=== PATIENT | male | born 1965 | race Caucasian/White ===

== ENCOUNTER 2017-12-09 13:25 | Emergency (ER) | payer BC, SELFPAY ==
--- NOTE | 2017-12-09 13:31 | XR_ITS ---
XR foot RT min 3V HISTORY: Pain at the fifth metatarsal ITS.REASON: PAIN ORDERING PHYSICIAN: Terrell Givens PATIENT AGE: 52 years COMPARISON: None FINDINGS: No fracture or dislocation. No lytic or blastic change. There is normal mineralization.. The joint spaces are well-preserved. No significant degenerative/arthritic changes. No erosive changes evident. IMPRESSION: Negative, no acute finding
[2017-12-09 13:46] VITALS: BP 190/87; PULSE 75; RESP 20; TEMP 36.6; O2SAT 99; BMI 27.1
--- NOTE | 2017-12-09 14:59 | HMH.EDUTC ---
[facility] [place] Disposition Clinical Impression: Right foot sprain Qualifiers: Encounter type: initial encounter Qualified Code(s): S93.601A - Unspecified sprain of right foot, initial encounter Disposition: Home, Self-Care Condition on Discharge: Good Instructions: How To Perform RICE (Rest, Ice, Compress, Elevate), DI for Foot Sprain Additional Instructions: * weight bearing as tolerated. Wear a shoe for support. If you change your mind about a walking boot, return and let us know. * Rest * ice 15-20 mins 3-4 times a day * Elevate as discussed as much as possible to help reduce swelling and therefore, pain * Ibuprofen every 6 hours as needed for pain and inflammation unless you want to take the meloxicam. DO NOT take both as they are similar medications. If you need something more, you can take tylenol every 4 hours as needed as long as your primary care provider has told you it is ok to take both. Referrals: Brad Gauthier MD [Primary Care Provider] - (Keep tomorrow morning's follow up appt. Be sure to let him know you were here and xrays were done. He should have access to this. ) Time of Disposition: 15:10 Medical Decision Making Vital Signs: 12/09/17 13:46 Temperature 98 F Temperature Source Temporal Artery Scan Pulse Rate [Right Brachial] 75 Respiratory Rate 20 Blood Pressure [Right Arm] 190/87 Blood Pressure Mean [Right Arm] 121 Blood Pressure Source [Right Arm] Automatic Cuff Blood Pressure Position [Right Arm] Sitting 02 Sat by Pulse Oximetry 99 Oxygen Delivery Method Room Air - Radiology Data #1 Image(s): Foot/Toes Image Reviewed: Yes I have reviewed radiologist's interpretation Preliminary Findings: Normal/NAD - Harish Inquiry Pt receiving controlled substance: No [facility] [place] HPI - General Stated complaint: AO [id number] RIGHT FOOT PAIN Time Seen by Provider: 12/09/17 14:59 Mode of Arrival: Ambulatory Source of Information: Patient Limitations: No Limitations Description of Symptoms (Recalled from Triage Doc. by RN): PT TWISTED RIGHT FOOT ON THURSDAY. PT NOW C/O PAIN IN THE ANKLE HEENT Symptoms (Recalled from RN notes): No Resp Symptoms (Recalled from RN notes): No Skin Symptoms (Recalled from RN notes): No MS Symptoms (Recalled from RN notes): Yes (C/O RT ANKLE PAIN) Functional Status (Recalled from RN notes): N/A - History of Present Illness Provider Complaint: c/o pain right foot in area between 5th digit and ankle. No ankle pain. No limited ROM. Reports that on Thursday he stood from his recliner barefoot and pivoted to walk into kitchen. When he did, he felt a strange sensation, not pain. Remember thinking I am sure I will feel that later . No pain that day. Wokeup Thursday, no pain until foot hit floor and tried to walk. Pain worse with walking. Meloxicam helps. Already scheduled appt with PCP tomorrow morning but wants xrays to rule out fracture. - Related Data Allergies Allergy/AdvReac Type Severity Reaction Status Date / Time Sulfa (Sulfonamide Allergy Unknown Verified 12/09/17 13:51 Antibiotics) [SULFA (SULFONAMIDE ANTIBIOTICS)] - Worker's Comp Is this a Worker's Comp case?: No [facility] History I have reviewed the patient's past medical history: Yes Medical History: Reports:: Diabetes Mellitus Type 2 Denies:: Cancer, Diabetes Mellitus Type 1, Hypertension, MRSA Other Surgeries: Yes: Other (tonsillectomy, knee, anterior bowel resection) Amputation: No Fractures: No - *Social History Smoking Status: Current every day smoker Tobacco Type: cigarettes Alcohol Intake: current Alcohol Intake Frequency:: a few times a month - Psychiatric History Expresses thoughts of harming self/others: None Suicide Plan Description: No Plan ROS Obtained: Yes Systems reviewed as appropriate & no additional complaints - Constitutional Constitutional: Denies body ache, Denies chills, Denies fever(s) - Musculoskeletal Musculoskeletal: Reports as per HPI, Denies abnormal gait, Denies selma
[2017-12-09 15:11] VITALS: BP 144/78; PULSE 78; RESP 20; TEMP 36.6; O2SAT 96
== END 2017-12-09 15:12 | disposition home or self-care (01) ==
PROVIDERS: Emergency Provider Nurse Practitioner Family; Family Provider Family Medicine; PCP Family Medicine
DX: S93.601A Unspecified sprain of right foot, initial encounter (principal); X50.1XXA Overexertion from prolonged static or awkward postures, initial encounter; Y92.019 Unspecified place in single-family (private) house as the place of occurrence of the external cause; Z88.2 Allergy status to sulfonamides; F17.210 Nicotine dependence, cigarettes, uncomplicated
CPT/HCPCS: 73630; 99202

== ENCOUNTER → 2020-06-27 11:52 | Outpatient (CLI) | payer BC, SELFPAY ==
--- NOTE | 2020-06-27 11:59 | XR_ITS ---
PROCEDURE: XR KNEE LT 2V CLINICAL INDICATION: PAIN IN L KNEE, INJURY UNSPECIFIED COMPARISON: CR KNEE3L KNEE-3 VIEWS-LT from 08/23/2015 FINDINGS: No fracture or dislocation. No lytic or blastic change. There is normal mineralization. The joint spaces are well-preserved. No significant degenerative/arthritic changes. No erosive changes evident. Other findings:None. IMPRESSION: No acute findings. Dictated by: Clayton Forrest MD 06/27/2020 14:02 Clayton Forrest MD in [place] 06/27/2020 14:02
== END ==
PROVIDERS: PCP Family Medicine; Visit Provider Family Medicine
DX: M25.562 Pain in left knee (principal); T14.90XA Injury, unspecified, initial encounter
CPT/HCPCS: 73560

== ENCOUNTER → 2020-08-06 15:52 | Outpatient (CLI) | payer BC, SELFPAY ==
--- NOTE | 2020-08-06 16:00 | XR_ITS ---
PROCEDURE: XR ANKLE RT MIN 3V CLINICAL INDICATION: ACUTE RT ANKLE PAIN, RT ANKLE SWELLING COMPARISON: No exams were available for comparison FINDINGS: No fracture or dislocation. No lytic or blastic change. There is normal mineralization. The joint spaces are well-preserved. No significant degenerative/arthritic changes. No erosive changes evident. Other findings:None. IMPRESSION: No acute findings. Dictated by: Clayton Forrest MD 08/06/2020 16:25 Clayton Forrest MD in [place] 08/06/2020 16:25
[2020-08-06 16:52] LABS: Basophils # 0.1 K/mm3 (0-0.2); Basophils % 0.5 % (0.1-2.0); Eosinophils # 0.2 K/mm3 (0.0-0.4); Hematocrit 44.8 % (42.0-52.0); Lymphocytes # 1.2 K/mm3 (0.7-4.5); Lymphocytes % 13.7 % (10-50); Mean Corpuscular HGB Conc 33.4 g/dL (31.8-35.4); Mean Corpuscular Hemoglobin 32.2 pg (27.0-31.2); Mean Corpuscular Volume 96.6 fl (80-94); Mean Platelet Volume 7.5 fl (7.4-10.4); Monocytes # 0.7 K/mm3 (0.1-1.0); Monocytes % 7.5 % (1.7-9.3); Neutrophils # 6.7 K/mm3 (1.8-7.8); Neutrophils % 76.3 % (37.0-80.0); Platelet Count 343 K/mm3 (142-424); Red Blood Count 4.64 M/mm3 (4.60-6.20); Red Cell Distribution Width 13.2 % (11.5-17.5); White Blood Count 8.7 K/mm3 (4.8-10.8)
[2020-08-06 17:27] LABS: Uric Acid 7.2 mg/dl (3.5-8.5)
== END ==
PROVIDERS: PCP Family Medicine; Visit Provider Nurse Practitioner Family
DX: M25.571 Pain in right ankle and joints of right foot (principal); M25.471 Effusion, right ankle
CPT/HCPCS: 36415; 73610; 84550; 85025

== ENCOUNTER → 2021-05-22 15:30 | Outpatient (CLI) | payer BC, SELFPAY | PROVIDERS: Visit Provider Internal Medicine Gastroenterology | DX: Z01.812 Encounter for preprocedural laboratory examination (principal); Z11.52 Encounter for screening for COVID-19; Z12.11 Encounter for screening for malignant neoplasm of colon | CPT/HCPCS: U0003 ==

== ENCOUNTER 2021-05-24 11:44 | Day surgery (SDC) | payer BC, SELFPAY ==
[2021-05-21 11:28] VITALS: BMI 29.1
[2021-05-24 12:41] VITALS: BP 174/100; PULSE 65; RESP 18; TEMP 36.4; O2SAT 99
[2021-05-24 13:05] LABS: POC Glucose,Bedside 138 (70-110)
[2021-05-24 13:11] VITALS: O2SAT 99
--- NOTE | 2021-05-24 13:46 | HMH.PROC ---
[facility] Procedure Note Procedure Note:: Colonoscopy Procedure Report: Colonoscopy with cold snare polypectomy Endoscopist: Quincy Arreaga II, MD Referring physician: Brad Gauthier MD/Fabricio Zhou MD Date of Procedure: May 24, 2021 Equipment: Olympus 190 variable stiffness pediatric colonoscope Sedation: MAC sedation Indication: Mr. Gutierres is a 55-year-old gentleman who had a prior colonoscopy in January 2017 and had a large rectosigmoid polyp. The histology showed focal intramucosal adenocarcinoma arising within a tubulovillous adenoma. He also had a second polyp that was tubular adenoma with high-grade dysplasia (i.e. advanced adenoma). He had 2 additional diminutive colon polyps at that time. His last colonoscopy in May 2018 revealed 5 additional polyps (primarily serrated adenomas x5) which were removed. The patient reports no abdominal pain, weight loss, change in his bowel habits or rectal bleeding. He reports no family history of colon cancer. He does state that the Janumet resulted in loose bowel movements. Procedure: Prior to the procedure, a history and physical exam was performed, and patient's medications and allergies were reviewed. The risks, benefits and alternatives of the sedation and procedure were discussed with the patient. All questions were answered and informed consent was obtained. The patient was brought to the procedure room. Patient identification and proposed procedure were verified by the physician and the nurse. The patient was placed in a left lateral decubitus position and the scope was passed under direct vision. Throughout the procedure, the patient's blood pressure, pulse, and oxygen saturations were monitored continuously. The colonoscopy was accomplished without difficulty. The patient tolerated the procedure well. Findings: On digital rectal examination there was normal rectal tone. There were no external hemorrhoids. The prostate was 2+, smooth, soft, symmetric without nodules. The colonoscope was introduced through the anal canal to the rectum and advanced to the cecum. The ileocecal valve and appendiceal orifice were identified. The scope was advanced a short distance into the ileum which appeared grossly normal. The scope was then withdrawn into the colon. There were 3 diminutive polyps (ascending x1 (4 mm) and rectosigmoid x2 (3 and 4 mm)) which were all removed via cold snare polypectomy. The remaining cecum, ascending and transverse colon and mucosa were grossly normal. There were scattered diverticuli throughout the remaining descending colon. There was evidence of the prior end-to-side anastomosis which was healthy and well-healed. The rectum itself was normal. Upon retroflexion within the rectum there were grade 1-2 internal hemorrhoids. The preparation was excellent throughout with [place] Preparation Score of 9. The cecal time was 11 minutes. Impression: 1. Diminutive colonic polyps x3 2. Mild left-sided diverticulosis 3. Prior LAR anastomosis (normal) 4. Grade 1-2 internal hemorrhoids Plan: I would recommend surveillance colonoscopy again in 3 years. The patient has had adenocarcinoma as well as very advanced adenomatous polyps at a young age. I would like to see if his prior pathology specimen can be tested further for MSI (microsatellite instability) to rule out Dillon syndrome. This may have implications on future surveillance protocol as well as pertinence with his siblings and children.
[2021-05-24 13:50] VITALS: BP 105/77; PULSE 72; RESP 16; TEMP 36.6; O2SAT 94
[2021-05-24 14:00] VITALS: BP 155/90; PULSE 55; RESP 16; TEMP 36.6; O2SAT 94
--- NOTE | 2021-05-24 14:02 | HMH.ANESCL ---
[facility] Anesthesia Checklist - Structural Data Admitted From: Inpatient Planned Operative Procedure/s: egd Consent for Planned Operative Procedure(s) Verified: Yes - Additional verifications Anesthesia Reactions: No - Airway Assessment C-Spine Mobility Assessed: Yes TMJ Mobility Assessed: Yes Dentition: Poor Dentition - Neurological Assessment Level of Consciousness: Awake, Alert, Appropriate - Anesthesia Plan Anesthesia Risk discussed: Yes Anesthesia Plan: Verified ASA Class: III Anesthesia Type: MAC [facility] History I have reviewed the patient's past medical history: Yes Medical History: Reports:: Diabetes Mellitus Type 2, Hyperlipidemia Denies:: Cancer, Diabetes Mellitus Type 1, Hypertension, Internal Pacemaker, Lung Disease, MRSA, Seizures *Have you ever received a pneumonia vaccine?: No *Have you received a flu vaccine this season?: Yes Anesthesia experience/problems:: none Laterality Cases: Bilateral: Tonsillectomy Other Surgeries: Yes: Other (tonsillectomy, knee, anterior bowel resection). No: Pacemaker Amputation: No Fractures: No - *Social History Last grade of school completed: Advanced degree Smoking Status: Current some day smoker Tobacco Type: cigars #Yrs smoked (if former smoker): 5 Smoking End Date: 2017 Alcohol Intake: current Alcohol Intake Frequency:: a few times a week Substance Use Type: denies use *Occupational Status:: employed Housing: house Household Members: none *Travel in the last 8 weeks: None Family Hx:: Diabetes
[2021-05-24 14:10] VITALS: BP 158/87; PULSE 51; RESP 18; TEMP 36.6; O2SAT 95
[2021-05-24 14:20] VITALS: BP 159/90; PULSE 55; RESP 18; TEMP 36.6; O2SAT 96
== END 2021-05-24 14:20 | disposition home or self-care (01) ==
LOC: OUTP 11:47
PROVIDERS: PCP Family Medicine; Visit Provider Internal Medicine Gastroenterology
PROC: 0DJD8ZZ Inspection of Lower Intestinal Tract, Via Natural or Artificial Opening Endoscopic (ICD-10-PCS; CPT 45378; principal; 2021-05-24 13:00)
DX: Z12.11 Encounter for screening for malignant neoplasm of colon (principal); Z85.038 Personal history of other malignant neoplasm of large intestine; K63.5 Polyp of colon; K57.30 Diverticulosis of large intestine without perforation or abscess without bleeding; K64.0 First degree hemorrhoids; Z90.49 Acquired absence of other specified parts of digestive tract; E11.9 Type 2 diabetes mellitus without complications; E78.5 Hyperlipidemia, unspecified; Z83.3 Family history of diabetes mellitus; Z72.0 Tobacco use; Z88.2 Allergy status to sulfonamides; Z79.899 Other long term (current) drug therapy
CPT/HCPCS: 45385; 82962

== ENCOUNTER → 2021-11-21 08:51 | Outpatient (CLI) | payer BC, SELFPAY | PROVIDERS: Visit Provider Nurse Practitioner | DX: U07.1 COVID-19 (principal) | CPT/HCPCS: C9803; U0003; U0005 ==

== ENCOUNTER → 2022-06-18 11:17 | Outpatient (CLI) | payer BC, SELFPAY ==
--- NOTE | 2022-06-18 11:23 | XR_ITS ---
FINAL REPORT CLINICAL HISTORY: SWELLING IN SUPRA PUBIS AREA FINDINGS: Two views of the chest were obtained. The heart size and pulmonary vascularity are within normal limits. The mediastinum is normal. No acute pulmonary abnormality is identified. There is no pneumothorax. The bony thorax is intact. IMPRESSION: No active cardiopulmonary disease. Reviewed, Interpreted and Dictated by Dionicio Gerardo III, MD Transcribed by Ilana Chavez Authenticated and [facility]
== END ==
PROVIDERS: PCP Family Medicine; Visit Provider Family Medicine
DX: R22.2 Localized swelling, mass and lump, trunk (principal)
CPT/HCPCS: 71046

== ENCOUNTER → 2022-07-16 09:56 | Outpatient (CLI) | payer BC, SELFPAY ==
--- NOTE | 2022-07-16 10:31 | MR_ITS ---
FINAL REPORT CLINICAL HISTORY: HERNIATION OF LEFT APEX LUNG X 2-3 WEEKS PT STATED AREA IS SQUISHY , NO HARD NODULES OR PAIN MARKER PLACED ON AREA OF INTREST FINDINGS: MRI CHEST W/O CONTRAST Multi planar MR imaging was obtained of the chest without contrast. There is no mediastinal or hilar mass. No pulmonary mass is identified. There is no chest wall mass or fluid collection. There is no chest wall hernia. IMPRESSION: No mass, fluid collection, or hernia identified. Reviewed, Interpreted and Dictated by Dionicio Gerardo III, MD Transcribed by Antione Valera Authenticated and [facility]
== END ==
PROVIDERS: PCP Family Medicine; Visit Provider Family Medicine
DX: J98.4 Other disorders of lung (principal)
CPT/HCPCS: 71550

== ENCOUNTER 2022-08-30 11:39 | Emergency (ER) | payer BC, SELFPAY ==
[2022-08-30 11:42] VITALS: BP 160/100; PULSE 95; RESP 18; TEMP 36.7; O2SAT 98; BMI 28.3
--- NOTE | 2022-08-30 12:04 | XR_ITS ---
PROCEDURE INFORMATION: Exam: XR Right Hand Exam date and time: 08/30/2022 12:14 PM Age: 56 years old Clinical indication: Injury or trauma; Other: Smashed right index finger; Blunt trauma (contusions or hematomas); Injury date: 08/30/2022 TECHNIQUE: Imaging protocol: Radiologic exam of the Right hand. Views: 3 or more views. COMPARISON: No relevant prior studies available. FINDINGS: Bones/joints: Normal. Soft tissues: Normal. IMPRESSION: No acute findings.
[2022-08-30 12:10] VITALS: BP 160/100; PULSE 95; RESP 18; TEMP 36.7; O2SAT 98; BMI 28.3
--- NOTE | 2022-08-30 13:05 | EXP.UTC ---
Discharge Plan Disposition Patient Disposition: Home, Self-Care Condition: Good Prescriptions Prescriptions: New amoxicillin-pot clavulanate 875-125 mg Tablet 1 tab PO Q12H 7 Days Qty: 14 0RF No Action atorvastatin 10 mg tablet 10 mg PO erythromycin 5 mg/gram (0.5 %) ointment 0.5 inch OPHTHALMIC BID 7 Days Qty: 1 0RF sitagliptin-metformin 0 tablet, ER multiphase 24 hr 2 tab PO DAILY Referrals Follow up/Referrals: Carl Chacon MD [Primary Care Provider] - See instructions Activity Restrictions/Add. Instructions Additional Instructions/Restrictions: Suture instructions: ?You have required stitches or [place] today. Please read the following instructions so you know how to care for them: ?1. Keep wound area dry for the first 24 hours. 2?? May clean gently with mild soap and water, after 48 hours to prevent crusting over suture knots. 3. You may shower if your provider gives permission but do not take a bath until the skin is healed.. 4. Never leave a wet dressing or Band-Aid on your stitches as this allows bacteria to reach the area and may cause infection. Band-aids can cause the wound to sweat and not recommended to wear for long periods of time Watch for signs of infection: ? Increasing redness, tenderness or warmth around the suture site ? Unusual swelling around the site ? Appearance of pus around each suture or any red streaks ? Fever If you develop any of the above signs or symptoms of infection, Follow up with Family Physician immediately 5. Suture removal in _10-12___days 6. Return to [facility] or follow up with family doctor for removal. This can be done by any medical provider dur?ing regular hours on Thursday through Thursday, by appointment. Clinical Impressions Clinical Impression: Finger laceration Qualifiers: Encounter type: initial encounter Finger: index finger Damage to nail status: without damage Foreign body presence: unspecified Laterality: right Qualified Code(s): S61.210A - Laceration without foreign body of right index finger without damage to nail, initial encounter Stand Alone Forms Stand Alone Forms: Work/School Release Instructions Patient Instructions: DI for Laceration Repair Discharge ED Provider: Leticia Moscoso [facility] [place] General Stated complaint: Smashed RT index finger @home 08/30 Mode of Arrival: Ambulatory Source of Information: Patient Limitations: No Limitations Time Seen by Provider: 08/30/22 12:15 Description of Symptoms (Recalled from Triage Doc. by RN): laceration to R index finger, pt reports he slammed and aluminum pipe down on the ground it folded back and cut him. Pt denies numbness/tingling or decreased sensation HEENT Symptoms (Recalled from RN notes): No Resp Symptoms (Recalled from RN notes): No Skin Symptoms (Recalled from RN notes): Yes MS Symptoms (Recalled from RN notes): No Functional Status (Recalled from RN notes): WNL History of Present Illness Provider Complaint: Patient state that he got mad earlier and took a metal broom pole and hit it against the ground and it folded and cut him on his right index finger States that it smashed it between the pole Related Data Home Medications Medication Instructions Recorded Confirmed sitagliptin 50 mg-metformin ER 2 tab PO DAILY sugar 03/16/18 06/21/21 1,000 mg tablet,extended release 24h mp atorvastatin 10 mg tablet 10 mg PO 06/21/21 06/21/21 Previous Rx's Medication Instructions Recorded erythromycin 5 mg/gram (0.5 %) eye 0.5 inch ophthalmic (eye) BID stye 06/21/21 ointment 7 days #1 g amoxicillin 875 mg-potassium 1 tab PO Q12H 7 days #14 tabs 08/30/22 clavulanate 125 mg tablet Allergies Allergy/AdvReac Type Severity Reaction Status Date / Time Sulfa (Sulfonamide Allergy Unknown Verified 06/21/21 18:07 Antibiotics) [SULFA (SULFONAMIDE ANTIBIOTICS)] Worker's Comp Is this a Worker's Comp case?: No PFSH PFSH Medical History (Updated 08/30/22 @ 13:14 by
[2022-08-30 13:31] VITALS: BP 160/100; PULSE 95; RESP 18; TEMP 36.7; O2SAT 98
== END 2022-08-30 13:32 | disposition home or self-care (01) ==
LOC: ER 11:50 → UTC 11:51
PROVIDERS: Emergency Provider Nurse Practitioner; PCP Family Medicine
DX: S61.210A Laceration without foreign body of right index finger without damage to nail, initial encounter (principal); E11.9 Type 2 diabetes mellitus without complications; F17.290 Nicotine dependence, other tobacco product, uncomplicated; Z79.899 Other long term (current) drug therapy; Z88.2 Allergy status to sulfonamides; Z23 Encounter for immunization; Z85.038 Personal history of other malignant neoplasm of large intestine; W23.0XXA Caught, crushed, jammed, or pinched between moving objects, initial encounter
CPT/HCPCS: 12001; 73130; 90471; 90715; 99213; G0463

== ENCOUNTER → 2023-07-14 15:13 | Outpatient (CLI) | payer BC, SELFPAY ==
--- NOTE | 2023-07-14 15:21 | XR_ITS ---
FINAL REPORT CLINICAL HISTORY: ACUTE KNEE PAIN FINDINGS: 3 views of the right knee were obtained. There is no acute fracture or dislocation. There are mild degenerative changes. There is a moderate joint effusion. IMPRESSION: Moderate joint effusion with no acute bony abnormality. Reviewed, Interpreted and Dictated by Dionicio Gerardo III, MD Transcribed by Antione Valera Authenticated and [facility]
== END ==
PROVIDERS: PCP Family Medicine; Visit Provider Nurse Practitioner
DX: M25.561 Pain in right knee (principal)
CPT/HCPCS: 73562

== ENCOUNTER → 2023-08-04 13:28 | Outpatient (CLI) | payer BC, SELFPAY ==
--- NOTE | 2023-08-04 13:34 | MR_ITS ---
FINAL REPORT CLINICAL HISTORY: KNEE PAIN on medial side swelling FINDINGS: Multiplanar MR imaging of the right knee was performed without contrast. The medial meniscus is intact. There is a tear of the posterior horn of the lateral meniscus. The anterior and posterior cruciate ligaments are intact. The medial collateral ligament and lateral ligamentous complex are intact. The patellar and quadriceps tendons are intact. There is no evidence of fracture. There is moderate chondromalacia of the lateral patellar facet. There is mild lateral patellar subluxation. A moderate joint effusion is seen. The musculature is intact. No soft tissue mass or cyst is identified. IMPRESSION: Tear of the posterior horn of the lateral meniscus. 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 Moderate joint effusion. Reviewed, Interpreted and Dictated by Dionicio Gerardo III, MD Transcribed by Antione Valera Authenticated and [facility] [place]
== END ==
LOC: RAD 13:29
PROVIDERS: PCP Family Medicine; Visit Provider Nurse Practitioner
DX: M25.561 Pain in right knee (principal)
CPT/HCPCS: 73721

== ENCOUNTER 2023-10-29 14:00 | Outpatient (RCR) | payer BC, SELFPAY ==
--- NOTE | 2023-09-28 16:15 | HMH.RHREAS ---
Rehab Reassessment Rehab OP Re-assessment Start: 08/27/23 07:56 Freq: Status: Active Protocol: Document 09/28/23 16:02 ARIANA (Rec: 09/28/23 16:15 ARIANA [id number]) E-signed By Philip Maguire, PT Lower Extremity Functional Index Activities Today, do you or would you have any difficulty at all with: a.Any of your usual work, housework or A little bit of difficulty school activities b. Your usual hobbies, recreational or A little bit of difficulty sporting activities c. Getting into or out of the bath No difficulty d. Walking between rooms No difficulty e. Putting on your shoes or socks No difficulty f. Squatting Moderate difficulty g. Lifting an object, like a bag of No difficulty groceries from the floor h. Performing light activities around A little bit of difficulty your home i. Performing heavy activities around Moderate difficulty your home j. Getting into or out of a car A little bit of difficulty k. Walking 2 blocks A little bit of difficulty l. Walking a mile Moderate difficulty m. Going up or down 10 stairs (about 1 A little bit of difficulty flight of stairs) n. Standing for 1 hour No difficulty o. Sitting for 1 hour No difficulty p. Running on even ground Quite a bit of difficulty q. Running on uneven ground Quite a bit of difficulty r. Making sharp turns while running fast Quite a bit of difficulty s. Hopping Extreme difficulty or unable to perform activity t. Rolling over in bed No difficulty LEFI Score Lower Extremity Functional Index Score 55 Rehab Re-assessment Subjective Subjective Pt reports improved right knee pain and ROM since I eval Objective Objective Notes AROM: RIGHT KNEE FLX 0-126 MMT: R KNEE FLX 5/5, R KNEE EXT 5/5, R HIP ER 5/5, R HIP IR 4+-5/5 W/PAIN(LATERAL JT LINE), R HIP ABD 4+/5, R HIP ADD 5/5, R HIP EXT 4+/5 TTP: RIGHT KNEE LATERAL JT LINE 0-1/4 GAIT: WFL ON LEVEL TERRAIN Assessment Progress Assessment Progressing as Expected Assessment Notes IMPROVED STRENGTH, ROM, TTP Patient goals met STG'S 04/14 Goals Not Met STG'S 05/14 Plan Plan Pt to continue w/skilled P.T. to make further improvements in ROM, strength, TTP to allow for optimal function Frequency of Therapy 1-2x/wk Duration of therapy 3-5wks Time and Billing Re-Eval Time 11 Re-Eval Billing Units 1 PHYSICIAN CERTIFICATION: I certify the specified therapy services for Jeff Priscilla Bhavik OLIVO are required, authorized, and reviewed every 30 days.
== END 2023-10-29 15:20 | disposition home or self-care (01) ==
LOC: PT 14:00
PROVIDERS: PCP Family Medicine; Visit Provider Orthopaedic Surgery
DX: S83.281A Other tear of lateral meniscus, current injury, right knee, initial encounter (principal); M25.561 Pain in right knee
CPT/HCPCS: 97110; 97140; 97163; 97164; 97530

== ENCOUNTER 2024-06-09 13:16 | Outpatient (CLI) | payer BC, SELFPAY ==
--- NOTE | 2024-06-09 13:26 | XR_ITS ---
FINAL REPORT CLINICAL HISTORY: Rt Knee Pain, tore meniscus in September of 2023 & is now wanting surgery FINDINGS: Right knee Three views were obtained. There is no acute fracture or dislocation. There are mild degenerative changes. Small joint effusion is identified. IMPRESSION: Small joint effusion. Reviewed, Interpreted and Dictated by Dionicio Gerardo III, MD Transcribed by Dixie Rodrigues Authenticated and [facility]
== END 2024-06-09 23:59 | disposition home or self-care (01) ==
LOC: RAD 13:17
PROVIDERS: PCP Family Medicine; Visit Provider Physician Assistant Surgical
DX: M25.561 Pain in right knee (principal)
CPT/HCPCS: 73562

== ENCOUNTER 2024-06-20 06:05 | Day surgery (SDC) | payer BC, SELFPAY ==
[2024-06-16 12:05] VITALS: BMI 29.1
[2024-06-20] VITALS (11 sets, daily range): BP systolic 136–180; BP diastolic 72–103; PULSE 74–95; RESP 14–18; TEMP 36.1–43; O2SAT 95–98
[2024-06-20 06:41] LABS: POC Glucose,Bedside 131 (70-110)
[2024-06-20] MEDS: LACTATED RINGERS 1000ML 1,000 ML 25 ML IV (06:43)
[2024-06-20] MEDS: CEFAZOLIN SODIUM 2 GM in 0.9 % SODIUM CHLORIDE 100 ML IV (07:36)
[2024-06-20] MEDS: RINGERS SOLUTION,LACTATED 6,000 ML 25 ML IR (07:52)
[2024-06-20] MEDS: BUPIVACAINE 0.25% 30ML VIAL 75 MG (07:52)
--- NOTE | 2024-06-20 07:54 | P.PNANES_ITS ---
[facility] Disclaimer: The information contained in this section may have been updated after the patient was seen, as this information can be updated by other users. 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 current occupational exposures/hazards: No caffeine: Yes [facility] Anesthesia Checklist Patient Identification Patient Identification: Verbal (Name & ) Structural Data Admitted From: Home Planned Operative Procedure/s: r knee arthroscopy NPO Status Verified Time NPO: 00:00 Additional verifications Anesthesia Reactions: No Hx Blood Transfusions: No Blood Transfusion Reaction: No Airway Assessment Mallampati Score:: Class II C-Spine Mobility Assessed: Yes TMJ Mobility Assessed: Yes Dentition: Poor Dentition Neurological Assessment Level of Consciousness: Awake, Alert and Appropriate Anesthesia Plan Anesthesia Risk discussed: Yes Anesthesia Plan: Verified ASA Class: II Anesthesia Type: General
--- NOTE | 2024-06-20 08:22 | P.OP_ITS ---
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 Right knee marked with yes and my init ials. Transported operative suite. Placed upon operating bed. General anesthesia administered airway secured. Right leg was prepped and draped within the leg boyd. Once prepped and draped final operative timeout performed to identify proper patient procedure and extremity. Everyone involved in the case agreed. There were no counter indications to beginning. He did receive preoperative antibiotics. Marking pen was used to elizabeth the bony landmarks of the knee and standard portal sites. Esmarch was used to exsanguinate the extremity and pneumatic tourniquet inflated to 300 mmHg. Skin knife is used to incise standard anterior lateral portal blunt with trocar was placed in the patellofemoral joint exchange with a camera. I swept directly into the medial joint line where the anterior medial portal was made with the help of an 18-gauge spinal needle. Within the medial joint line there is no tearing of the medial meniscus however there is an area of full-thickness chondromalacia on the medial femoral condyle that was small in nature. It was rubbing the synovium on the medial joint which was debrided with sucker shaver. There is significant amount of synovitis intercondylar notch and lateral joint line which was debrided with a sucker shaver. ACL was seen and intact. Attention is brought to the lateral joint line. Within the lateral joint line there is evidence of a tear of the posterior horn of the lateral meniscus using a combination of straight biter and sucker shaver partial lateral meniscectomy was performed back to [facility]. There was an area of the lateral femoral condyle adjacent to the meniscus tear which was rubbing and causing grade 3 4 chondromalacia of the lateral femoral condyle. This is isolated to the area adjacent to the meniscus tear. Swept into the patellofemoral joint and the medial lateral gutters. Within the patellofemoral joint there is grade IV chondromalacia of the patella. Patella did track midline within the trochlea there was severe patellofemoral osteoarthritis present. No further pathology was seen the camera was removed. The joint was drained. Local anesthesia filtrated the portal sites. Skin closed with nylon stitch. Sterile dressing placed from toe to thigh. Patient waken anesthesia taken to recovery in stable condition. Condition: stable Disposition: PACU Complications:: None apparent
[2024-06-20 08:36] LABS: POC Glucose,Bedside 115 (70-110)
--- NOTE | 2024-06-20 08:37 | P.PNANES_ITS ---
[facility] Anesthesia Record Part I Anesthesia Record I Intake, IV Amount: 1,500 Hydration: Adequate Estimated blood loss (mL): 0 Urine output (mL): 0 Blood Pressure: 149/100 SaO2: 97 Pulse Rate: 82 Airway Patency: Patent Respiratory Rate: 14 Temperature: 97.5 F Patient is:: Awake and Stable Stable to PACU at:: 08:23
--- NOTE | 2024-06-23 09:49 | P.PNANES_ITS ---
[facility] Anesthesia Record Part II Anesthesia Record Part II Discharge Time: 08:54 Destination: Surgical Day Care (OP Surgery) PACU nurse assessment reviewed?: Yes Patient Condition:: Good Anesthesia Complications:: None Swallowing reflex intact?: Yes Airway Patency: Patent Cyanosis?: No Blood Pressure: 173/100 SaO2: 95 Respiratory Rate: 18 Pulse Rate: 78 Temperature: 97.9 F Mental Status: Alert & Oriented Pain level:: 0 Nausea and/or vomitting:: None Intake, IV Amount: 0 Hydration: Adequate
[2024-06-23 09:50] VITALS: BP 173/100; PULSE 78; RESP 18; TEMP 36.6; O2SAT 95
== END 2024-06-20 09:25 | disposition home or self-care (01) ==
PROVIDERS: PCP Family Medicine; Visit Provider Orthopaedic Surgery
PROC: (CPT 29870; principal; 2024-06-20 07:30)
DX: S83.271A Complex tear of lateral meniscus, current injury, right knee, initial encounter (principal); M94.261 Chondromalacia, right knee
CPT/HCPCS: 29881; 82962; 96374; J0690; J1100; J1885; J2250; J2405; J3010; J7120

== ENCOUNTER 2025-03-11 11:40 | Emergency (ER) | payer BC, SELFPAY ==
[2025-03-11 11:45] VITALS: BP 182/123; PULSE 81; O2SAT 98
[2025-03-11 11:47] VITALS: BP 173/105; PULSE 99; O2SAT 100
--- NOTE | 2025-03-11 11:50 | XR_ITS ---
PROCEDURE INFORMATION: Exam: XR Left Ribs with PA Chest Exam date and time: 03/11/2025 11:48 AM Age: 59 years old Clinical indication: Injury or trauma; Fall; Rib area, left side; Laceration; With foreign body; Additional info: Fall into glass cabinet, smoker TECHNIQUE: Imaging protocol: Radiologic exam of the left ribs with PA chest. Views: 3 views COMPARISON: MR CHEST WO CON 07/16/2022 10:35 AM FINDINGS: Lungs: No evidence of pneumonia or interstitial edema. There is a granuloma in left lower lobe Pleural spaces: Unremarkable. No pleural effusion. No pneumothorax. Heart/Mediastinum: Unremarkable. No cardiomegaly. Bones/joints: No visible acute fracture. No radiopaque foreign body. IMPRESSION: 1. No evidence of pneumonia or interstitial edema. 2. No visible acute fracture. No radiopaque foreign body
[2025-03-11 11:52] VITALS: BP 173/105; PULSE 99; RESP 18; TEMP 37; O2SAT 98; BMI 28.6
--- NOTE | 2025-03-11 11:54 | ED_ITS ---
<Statement entered by Chanda Bell MD - 03/11/25 15:59> I was consulted by the EUN, and we discussed the complexity of problems being addressed. I approved the treatment and management plan for this patient's care in the emergency department, thus performing a substantive portion of the medical decision making. Chanda Bell MD Discharge Plan Disposition Patient Disposition: Home, Self-Care Condition: Good Prescriptions Prescriptions: No Action atorvastatin 10 mg tablet 10 mg PO DAILY celecoxib [Celebrex] 100 mg capsule 100 mg PO BID Qty: 60 2RF sitagliptin phos-metformin 0 tablet, ER multiphase 24 hr 2 tab PO DAILY Referrals Follow up/Referrals: Carl Chacon MD [Primary Care Provider] - See instructions Activity Restrictions/Add. Instructions Additional Instructions/Restrictions: Keep area clean dry and covered. Return to your primary care in 1 week for removal of sutures. May take ibuprofen or Tylenol for pain if needed. Return to ED if any worsening signs or symptoms Clinical Impressions Clinical Impression: Laceration Instructions Patient Instructions: DI for Laceration Repair Print Language Print Language: Lao Discharge ED Provider: Chanda Bell General Adult HPI General Chief complaint: Wound/Laceration Stated complaint: Fell into glass, R side cut/pain Time Seen by Provider: 03/11/25 11:46 History of Present Illness HPI narrative: This is a 59-year-old male who presents to the ED today after falling through a double glass pain last night. He says he got too drunk and fell into the glass. He did sustain a triangular size cut that the bleeding is controlled at this time. Patient is not having any difficulty breathing at this time. He denies any pain otherwise. Patient is a daily drinker. Related Data Home Medications ?Medication ?Instructions ?Recorded ?Confirmed sitagliptin phos 50 mg-metformin 2 tab PO DAILY sugar 03/16/18 12/12/24 ER 1,000 mg tablet,extend rel 24h mp atorvastatin 10 mg tablet 10 mg PO DAILY 06/21/21 12/12/24 Previous Rx's ?Medication ?Instructions ?Recorded celecoxib 100 mg capsule (Celebrex) 100 mg PO BID #60 caps 12/12/24 Allergies Allergy/AdvReac Type Severity Reaction Status Date / Time Sulfa (Sulfonamide Allergy Unknown Verified 12/12/24 14:01 Antibiotics) (SULFA (SULFONAMIDE ANTIBIOTICS)) [facility] Disclaimer: The information contained in this section may have been updated after the patient was seen, as this information can be updated by other users. 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 current occupational exposures/hazards: No caffeine: Yes Have you lived/traveled outside [place] in past 30 days?: No Contact w/someone who lives/traveled outside US past 30 days?: No Exposure to someone with infectious disease in past 14 days?: No Do you have a fever (greater than 100.4 F or 38 C)?: No Have you tested positive for COVID-19?: No Exposed to someone with COVID-19 in past 14 days?: No Do you have a sore throat?: No Do you have a cough?: No Do you have any weakness?: No Do you have any diarrhea?: No Are you experiencing any unusual bleeding?: No Do you have any muscle aches/pain?: No Do you have any abdominal pain?: No Are you experiencing loss of taste or smell?: No Other Medical History Have you received the Flu Vaccine for this season: Yes Have you received the Pneumonia Vaccine: No ROS Obtained: Yes Systems reviewed as appropriate & no additional complaints except as documented Constitutional Constitutional: Reports as per HPI Physical Exam General General appearance: alert and in no apparent distress Head Head exam: atraumatic and normocephalic Eye Eye exam: Present normal appearance, PERRL and EOMI ENT ENT exam: Present normal exam, normal oropharynx and mucous membranes moist Neck Neck exam: Present normal inspection, full ROM and trachea midline Chest Chest inspection: Present other (right sided laceration that is triangular shaped subcu tissue showing, bleeding controlled) Respiratory Respiratory exam: Present normal lung sounds bilaterally Cardiovascular Cardiovascular exam: Present regular rate, normal rhythm, normal heart sounds, +S1 and +S2 Extremities Exam Extremities exam: Present full ROM and normal capillary refill Neurological Exam Neurological exam: Present alert and oriented X3 Skin Skin exam: Present warm, dry and other (Triangular shaped laceration on the righ t side of chest) Medical Decision Making Medical Records Medical records reviewed: Yes I reviewed the patient's medical records. Screening: Per USPSTF and CDC recommendations, given the prevalence of disease in our region, it is our hospital?s policy to screen for HIV and viral Hepatitis for all patients aged 18 and over and those with ongoing risk factors. Harish Inquiry Pt receiving controlled substance: No Harish was queried for this patient: No Vital Signs: 03/11/25 11:45 03/11/25 11:47 03/11/25 11:52 Temperature 98.6 F Temperature Source Oral Pulse Rate 81 99 H Pulse Rate [Left Radial] 99 H Respiratory Rate 18 Blood Pressure 182/123 H 173/105 H Blood Pressure [Left Arm] 173/105 H Blood Pressure Mean [Left Arm] 127 Blood Pressure Source [Left Arm] Automatic Cuff Blood Pressure Position [Left Arm] Sitting 02 Sat by Pulse Oximetry 98 100 98 Oxygen Delivery Method Room Air Room Air Room Air 03/11/25 12:57 Temperature 98.6 F Temperature Source Pulse Rate 99 H Pulse Rate [Left Radial] Respiratory Rate 18 Blood Pressure 173/105 H Blood Pressure [Left Arm] Blood Pressure Mean [Left Arm] Blood Pressure Source [Left Arm] Blood Pressure Position [Left Arm] 02 Sat by Pulse Oximetry Oxygen Delivery Method Room Air Orders (Tests/Meds): ED MEDICATIONS Discontinued Medications Generic Name Dose Route Start Last Admin Trade Name Freq PRN Reason Stop Dose Admin Lidocaine/Epinephrine 0 ml 03/11/25 12:15 03/11/25 12:21 Lidocaine 1% W/Epi 1:100,000 20ml Vial SQ 03/11/25 12:16 20 ml ONCE ONE Administration Lidocaine/Epinephrine 10 ml 03/11/25 12:15 Lidocaine 1% W/Epi 1:100,000 20ml Vial SQ 03/11/25 12:16 ONCE ONE ORDERS Category Date Time Status XR ribs LT min 3V w CXR1V Stat Exams 03/11/25 11:50 Completed Medical Decision Narrative: This is a 59-year-old male who presents to the ED today for laceration to right rib after falling into a double pain With glass in it. Initial workup includes right rib series. Initial rib series read by myself was negative for acute fracture or foreign body. Formal read was also negative for acute fracture or foreign body. No other workup necessary today. Wound was explored and washed out and then repaired with 3 sutures. Patient educated on the wound and how to take care of it. Patient is stable throughout ER stay. I did notice his blood pressure was elevated but he has not taken his medication today. He will follow-up with his primary care for suture removal and blood pressure management. Patient safe for discharge home with instructions for wound management. Procedures Laceration Laceration 1: Site: other (Right flank) Size (cm): 2 Description: irregular Depth: involves subcutaneous layer Local Anesthetic: lidocaine 2% Amount of anesthesia used (mL): 3 Pre-repair: irrigated extensively Skin layer closed with: nylon Size (cm): 4-0 Technique: simple, interrupted Critical Care Critical Care Time Critical Care Time: No
[2025-03-11] MEDS: LIDOCAINE 1% W/EPI 1:100,000 20ML VIAL SQ (12:21)
[2025-03-11 12:57] VITALS: BP 173/105; PULSE 99; RESP 18; TEMP 37; O2SAT 96
== END 2025-03-11 12:58 | disposition home or self-care (01) ==
PROVIDERS: Emergency Provider Student in an Organized Health Care Education/Training Program; PCP Family Medicine
DX: S21.111A Laceration without foreign body of right front wall of thorax without penetration into thoracic cavity, initial encounter (principal); W25.XXXA Contact with sharp glass, initial encounter
CPT/HCPCS: 12001; 71101; 99283; J2004